=== PATIENT | male | born 1990 | race Caucasian/White ===

== ENCOUNTER 2016-09-14 19:19 | Emergency (ER) | payer OTHER ==
[~2016-09-14] VITALS: Ht 175.3 cm; Wt 107.0 kg
[2016-09-14 19:34] VITALS: BP 129/77; PULSE 118; RESP 14; TEMP 98.5; O2SAT 95
[2016-09-14 20:17] LABS: AUTOMATED NEUTROPHIL # 7.1 TH/MM3 (1.8-7.7); BASOPHIL % 0.4 % (0.0-2.0); EOSINOPHIL # 0.1 TH/MM3 (0-0.4); EOSINOPHIL % 0.8 % (0.0-4.0); HEMATOCRIT 43.6 % (39.0-51.0); HEMO FLAGS DIFF FINAL; LYMPH % 26.3 % (9.0-44.0); LYMPHOCYTE # 2.9 TH/MM3 (1.0-4.8); MEAN CELL VOLUME 84.7 FL (80.0-100.0); MEAN CORPUSCULAR HEMOGLOBIN 29.5 PG (27.0-34.0); MEAN CORPUSCULAR HGB CONC 34.8 % (32.0-36.0); MONO % 8.3 % (0.0-8.0); NEUT % 64.2 % (16.0-70.0); PLATELET COUNT 283 TH/MM3 (150-450); RED BLOOD COUNT 5.14 MIL/MM3 (4.50-5.90); RED CELL DISTRIBUTION WIDTH 13.9 % (11.6-17.2)
[2016-09-14 20:47] LABS: ALKALINE PHOSPHATASE 76 U/L (45-117); ALT (GPT) 21 U/L (12-78); ANION GAP 9 MEQ/L (5-15); AST (GOT) 15 U/L (15-37); BICARBONATE 27.9 MEQ/L (21.0-32.0); BLOOD UREA NITROGEN 13 MG/DL (7-18); CHLORIDE 103 MEQ/L (98-107); GLOMERULAR FILTRATION RATE 92 ML/MIN (>89); SODIUM (NA) 140 MEQ/L (136-145); TOTAL BILIRUBIN ADULT 0.3 MG/DL (0.2-1.0)
[2016-09-14 20:49] LABS: ACETAMINOPHEN LESS THAN 2.0 MCG/ML (10.0-30.0)
--- NOTE | 2016-09-14 21:08 | PD ---
HPI Chief Complaint: Psychiatric Symptoms Time Seen by Provider: 19:33 Travel History International Travel<30 days: No Contact w/Intl Traveler<30days: No Traveled to known affect area: No History of Present Illness HPI 26-year-old male arrives as a sheppard act. He told his mother he was going to kill himself after he got into an argument with her about getting a ride to [place]. He states he agrees with the mother frequently and this time the argument got out of hand. He denies any true harm to herself. He has been seen here in the past for various psychiatric disorders however at time of interview he denies any past psychiatric disease/diagnoses. He does report opioid abuse by mouth occasionally. He denies any history of IV drug abuse. Smokes tobacco. He denies alcohol. [facility] Past Medical History Medical History: Denies Significant Hx ADHD: No Weight (Kg): 3 Cancer: No Cardiovascular Problems: No Diabetes: No Diminished Hearing: No Headaches: No Psychiatric: No Migraines: No Seizures: No Thyroid Disease: No Ulcer: No Past Surgical History Surgical History: No Previous Surgery Appendectomy: No Section: No Cholecystectomy: No Social History Alcohol Use: Yes (A LOT-BEER AND VODKA) Tobacco Use: Yes (1PPD) Substance Use: Yes (MARIJUANA/COCAINE/XANAX) Allergies-Medications (Allergen,Severity, Reaction): Coded Allergies: No Known Allergies (Verified , 09/14/16) Reported Meds & Prescriptions Reported Meds & Active Scripts Active No Active Prescriptions or Reported Medications Review of Systems Except as stated in HPI: all other systems reviewed are Neg Physical Exam Narrative GENERAL: 26-year-old male well-nourished well developed no acute distress cooperative SKIN: Focused skin assessment warm/dry. HEAD: Atraumatic. Normocephalic. EYES: Pupils equal and round. No scleral icterus. No injection or drainage. ENT: No nasal bleeding or discharge. Mucous membranes pink and moist. NECK: Trachea midline. No JVD. CARDIOVASCULAR: Regular rate and rhythm. No murmur appreciated. RESPIRATORY: No accessory muscle use. Clear to auscultation. Breath sounds equal bilaterally. GASTROINTESTINAL: Abdomen soft, non-tender, nondistended. Hepatic and splenic margins not palpable. MUSCULOSKELETAL: No obvious deformities. No clubbing. No cyanosis. No edema. NEUROLOGICAL: Awake and alert. No obvious cranial nerve deficits. Motor grossly within normal limits. Normal speech. PSYCHIATRIC: The patient is a sheppard act after evidently verbalizing suicidal ideation to his mother. To me he denies SI/HI. Data Data Last Documented VS Vital Signs Date Time Temp Pulse Resp B/P Pulse Ox O2 Delivery O2 Flow Rate FiO2 09/14/16 19:34 98.5 118 14 129/77 95 VS reviewed Orders Complete Blood Count With Diff (09/14/16 19:53) Comprehensive Metabolic Panel (09/14/16 19:53) Psych Screen (09/14/16 19:53) Drug Screen, Random Urine (09/14/16 19:53) Alcohol (Ethanol) (09/14/16 19:53) Salicylates (Aspirin) (09/14/16 19:53) Tylenol (Acetaminophen) (09/14/16 19:53) Labs Laboratory Tests Test 09/14/16 19:45 White Blood Count 11.0 TH/MM3 Red Blood Count 5.14 MIL/MM3 Hemoglobin 15.2 GM/DL Hematocrit 43.6 % Mean Corpuscular Volume 84.7 FL Mean Corpuscular Hemoglobin 29.5 PG Mean Corpuscular Hemoglobin 34.8 % Concent Red Cell Distribution Width 13.9 % Platelet Count 283 TH/MM3 Mean Platelet Volume 8.1 FL Neutrophils (%) (Auto) 64.2 % Lymphocytes (%) (Auto) 26.3 % Monocytes (%) (Auto) 8.3 % Eosinophils (%) (Auto) 0.8 % Basophils (%) (Auto) 0.4 % Neutrophils # (Auto) 7.1 TH/MM3 Lymphocytes # (Auto) 2.9 TH/MM3 Monocytes # (Auto) 0.9 TH/MM3 Eosinophils # (Auto) 0.1 TH/MM3 Basophils # (Auto) 0.0 TH/MM3 CBC Comment DIFF FINAL Differential Comment Sodium Level 140 MEQ/L Potassium Level 4.0 MEQ/L Chloride Level 103 MEQ/L Carbon Dioxide Level 27.9 MEQ/L Anion Gap 9 MEQ/L Blood Urea Nitrogen 13 MG/DL Creatinine 1.00 MG/DL Estimat Glomerular Filtration 92 ML/MIN Rate Random Glucose 85 MG/DL Calcium Level 9.6 MG/DL Total Bilirubin 0.3 MG/DL Aspartate Amino Transf 15 U/L (AST/SGOT) Alanine Aminotransferase 21 U/L (ALT/SGPT) Alkaline Phosphatase 76 U/L Total Protein 7.8 GM/DL Albumin 4.3 GM/DL Salicylates Level 2.1 MG/DL Acetaminophen Level LESS THAN 2.0 MCG/ML Ethyl Alcohol Level LESS THAN 3 MG/DL MDM Medical Decision Making Medical Screen Exam Complete: Yes Emergency Medical Condition: Yes Medical Record Reviewed: Yes Differential Diagnosis Altered mental status/psychosis due to infection/environmental exposure/ metabolic abnormality, polypharmacy, alcohol abuse/intoxication, illicit or prescribed drug abuse, malingering/secondary gain, non-organic psychiatric disease Narrative Course CBC & BMP Diagram 09/14/16 19:45 LFTs normal EtOH <3 The history of present illness, ROS, physical exam, review of records and medical workup performed for today's visit have reasonably safely excluded organic etiologies for the patient's presenting complaint. We will continue to monitor the patient carefully in the ER until time of evaluation by the psychiatry service. We are available for any additional medical assistance if needed during the patient's ER course. Disposition per discretion of psychiatry is appreciated. Diagnosis Primary Impression: Suicidal ideation Scripts No Active Prescriptions or Reported Meds Casper Kern MD Sep 14, 2016 21:08
[2016-09-14 22:00] VITALS: BP 114/67; PULSE 79; RESP 18; TEMP 97.8; O2SAT 98
[2016-09-15 01:52] VITALS: BP 101/62; PULSE 67; RESP 18
[2016-09-15 06:04] VITALS: BP 115/55; PULSE 59; RESP 18
[2016-09-15 08:35] LABS: AMPHETAMINE, URINE NEG (NEG); BARBITURATES, URINE NEG (NEG); COCAINE, URINE NEG (NEG)
[2016-09-15 10:46] VITALS: BP 124/69; PULSE 69; RESP 18; TEMP 98; O2SAT 99
[2016-09-15 10:47] VITALS: BP 124/69; PULSE 69; RESP 18; O2SAT 99
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
== END 2016-09-15 11:38 | disposition home or self-care (01) ==
LOC: NED 19:19 → NEPJ 09-15 11:38
DX: F19.10 Other psychoactive substance abuse, uncomplicated (principal)
CPT/HCPCS: 80053; 80307; 85025; 99284

== ENCOUNTER 2017-06-28 21:04 | Emergency (ER) | payer SELFPAY ==
[~2017-06-28] VITALS: Ht 177.8 cm; Wt 85.0 kg
[2017-06-28 21:06] VITALS: BP 134/64; PULSE 84; RESP 20; TEMP 98.7; O2SAT 99
[2017-06-28] MEDS ORDERED: ASP: Only reason for admit - IV antibiotics OTHER ONE (21:30)
[2017-06-28] MEDS ORDERED: ASP: Does not meet inpatient admission criteria OTHER ONE (21:30)
[2017-06-28] MEDS ORDERED: LIDOCAINE 1%/EPINEPHrine 1:100,000 SOLN 20 ML VIAL INFIL ONE (21:30)
[2017-06-28] MEDS ORDERED: MISCELLANEOUS PHARMACY INFORMATION XX ONE ×3 (21:30→22:45)
[2017-06-28] MEDS ORDERED: ASP: Location of Dalbavancin administration OTHER ONE (21:30)
[2017-06-28] MEDS ORDERED: ASP: No known hypersensitivity to Vanco, Telavancin, Dalbavancin OTHER ONE (21:30)
--- NOTE | 2017-06-28 21:59 | PD ---
HPI Chief Complaint: Skin Problem Time Seen by Provider: 21:17 Travel History International Travel<30 days: No Contact w/Intl Traveler<30days: No Traveled to known affect area: No History of Present Illness HPI Patient's 27-year-old male presenting to the emergency department for evaluation of abscesses to his arms bilaterally. Patient states that he had been there for 2 days, getting worse over the last 24 hours. Patient reports pain is 8 out of 10 and states it is throbbing. Patient endorses IV drug use, he states he last injected methamphetamines last night and yesterday. Denies any fever, chills, nausea, vomiting, chest pain or shortness of breath. He reports that he recently started using IV drugs. Symptom onset was gradual, exacerbated by IV drug use. Patient denies any alleviating factors. PFSH Past Medical History Medical History: Denies Significant Hx Weight (Kg): 3 Tetanus Vaccination: Unknown Influenza Vaccination: No Past Surgical History Surgical History: No Previous Surgery Appendectomy: No Section: No Cholecystectomy: No Social History Alcohol Use: Yes (occasionally) Tobacco Use: Yes (1PPD) Substance Use: Yes (marijaunia and herion) Allergies-Medications (Allergen,Severity, Reaction): Coded Allergies: No Known Allergies (Verified Allergy, Unknown, 06/28/17) Reported Meds & Prescriptions Reported Meds & Active Scripts Active Mupirocin Topical (Mupirocin) 2 % Oint 1 Applic TOPICAL BID Ibuprofen 800 Mg Tab 800 Mg PO Q6HR PRN Review of Systems Except as stated in HPI: all other systems reviewed are Neg General / Constitutional: No: Fever, Chills Cardiovascular: No: Chest Pain or Discomfort, Palpitations, Tachycardia Respiratory: No: Shortness of Breath Gastrointestinal: No: Nausea, Abdominal Pain Musculoskeletal: Positive: Pain Skin: Positive Change in Pigmentation, Positive Lesions Physical Exam Narrative GENERAL: Well-developed, well-nourished, alert male. Presenting in no acute distress. SKIN: Warm and dry. There is a 2 cm area of fluctuance to the left antecubital space, 2 cm area of fluctuance to the left inner forearm. There is an additional area of fluctuance to the right antecubital space and right posterior forearm all of the lesions have the same dimensions. There is no significant induration. No Streaking noted. HEAD: Atraumatic. Normocephalic. EYES: Pupils equal and round. No scleral icterus. No injection or drainage. ENT: No nasal bleeding or discharge. Mucous membranes pink and moist. NECK: Trachea midline. No JVD. CARDIOVASCULAR: Regular rate and rhythm. RESPIRATORY: No accessory muscle use. Clear to auscultation. Breath sounds equal bilaterally. GASTROINTESTINAL: Abdomen soft, non-tender, nondistended. Hepatic and splenic margins not palpable. MUSCULOSKELETAL: Extremities without clubbing, cyanosis, or edema. No obvious deformities. 2+ radial pulses bilaterally. NEUROLOGICAL: Awake and alert. No obvious cranial nerve deficits. Motor grossly within normal limits. Five out of 5 muscle strength in the arms and legs. Normal speech. PSYCHIATRIC: Appropriate mood and affect; insight and judgment normal. Data Data Last Documented VS Vital Signs Date Time Temp Pulse Resp B/P (MAP) Pulse Ox O2 Delivery O2 Flow Rate FiO2 06/29/17 00:40 06/28/17 21:06 98.7 84 20 99 Room Air Orders Orders Complete Blood Count With Diff (06/28/17 21:25) Comprehensive Metabolic Panel (06/28/17 21:25) Blood Culture (06/28/17 21:25) Case Management Consult (06/28/17 ) Asp:No Reaction To Dalbav/Vanc (Asp Crit (06/28/17 21:30) Asp: Does Not Meet Inpt Admit (Asp Crit: (06/28/17 21:30) Asp: Iv Antibiotics Admit Only (Asp Crit (06/28/17 21:30) Asp: Location Of Dalbav Admin (Asp Crit: (06/28/17 21:30) [facility] Information ([facility] (06/28/17 21:30) Wound Culture And Gram Stain (06/28/17 21:25) Lidocai-Epi 1%-1:100,000 Inj (Xylocaine- (06/28/17 21:30) [facility] Information ([facility] (06/28/17 21:30) Ibuprofen (Motrin) (06/28/17 22:30) [facility] Information ([facility] (06/28/17 22:45) Dalbavancin Inj (Dalvance Inj) (06/28/17 22:45) Ed Discharge Order (06/29/17 00:42) Labs Laboratory Tests Test 06/28/17 21:40 White Blood Count 6.9 TH/MM3 Red Blood Count 4.65 MIL/MM3 Hemoglobin 13.8 GM/DL Hematocrit 39.6 % Mean Corpuscular Volume 85.2 FL Mean Corpuscular Hemoglobin 29.8 PG Mean Corpuscular Hemoglobin Concent 34.9 % Red Cell Distribution Width 14.3 % Platelet Count 211 TH/MM3 Mean Platelet Volume 7.4 FL Neutrophils (%) (Auto) 60.3 % Lymphocytes (%) (Auto) 26.4 % Monocytes (%) (Auto) 9.5 % Eosinophils (%) (Auto) 3.3 % Basophils (%) (Auto) 0.5 % Neutrophils # (Auto) 4.2 TH/MM3 Lymphocytes # (Auto) 1.8 TH/MM3 Monocytes # (Auto) 0.7 TH/MM3 Eosinophils # (Auto) 0.2 TH/MM3 Basophils # (Auto) 0.0 TH/MM3 CBC Comment DIFF FINAL Differential Comment Blood Urea Nitrogen 6 MG/DL Creatinine 0.77 MG/DL Random Glucose 94 MG/DL Total Protein 7.5 GM/DL Albumin 3.4 GM/DL Calcium Level 9.0 MG/DL Alkaline Phosphatase 117 U/L Aspartate Amino Transf (AST/SGOT) 152 U/L Alanine Aminotransferase (ALT/SGPT) 230 U/L Total Bilirubin 0.6 MG/DL Sodium Level 137 MEQ/L Potassium Level 3.7 MEQ/L Chloride Level 101 MEQ/L Carbon Dioxide Level 31.5 MEQ/L Anion Gap 5 MEQ/L Estimat Glomerular Filtration Rate 123 ML/MIN MDM Medical Decision Making Medical Screen Exam Complete: Yes Emergency Medical Condition: Yes Interpretation(s) Laboratory Tests Test 06/28/17 21:40 White Blood Count 6.9 TH/MM3 Red Blood Count 4.65 MIL/MM3 Hemoglobin 13.8 GM/DL Hematocrit 39.6 % Mean Corpuscular Volume 85.2 FL Mean Corpuscular Hemoglobin 29.8 PG Mean Corpuscular Hemoglobin Concent 34.9 % Red Cell Distribution Width 14.3 % Platelet Count 211 TH/MM3 Mean Platelet Volume 7.4 FL Neutrophils (%) (Auto) 60.3 % Lymphocytes (%) (Auto) 26.4 % Monocytes (%) (Auto) 9.5 % Eosinophils (%) (Auto) 3.3 % Basophils (%) (Auto) 0.5 % Neutrophils # (Auto) 4.2 TH/MM3 Lymphocytes # (Auto) 1.8 TH/MM3 Monocytes # (Auto) 0.7 TH/MM3 Eosinophils # (Auto) 0.2 TH/MM3 Basophils # (Auto) 0.0 TH/MM3 CBC Comment DIFF FINAL Differential Comment Blood Urea Nitrogen 6 MG/DL Creatinine 0.77 MG/DL Random Glucose 94 MG/DL Total Protein 7.5 GM/DL Albumin 3.4 GM/DL Calcium Level 9.0 MG/DL Alkaline Phosphatase 117 U/L Aspartate Amino Transf (AST/SGOT) 152 U/L Alanine Aminotransferase (ALT/SGPT) 230 U/L Total Bilirubin 0.6 MG/DL Sodium Level 137 MEQ/L Potassium Level 3.7 MEQ/L Chloride Level 101 MEQ/L Carbon Dioxide Level 31.5 MEQ/L Anion Gap 5 MEQ/L Estimat Glomerular Filtration Rate 123 ML/MIN Vital Signs Date Time Temp Pulse Resp B/P (MAP) Pulse Ox O2 Delivery O2 Flow Rate FiO2 06/28/17 21:06 98.7 84 20 134/64 (87) 99 Room Air Differential Diagnosis Cellulitis versus abscess versus sepsis versus metabolic abnormality versus other Narrative Course Patient's 27-year-old male presenting to the emergency department for evaluation of multiple skin abscesses secondary to IV drug use. Patient's vital signs are stable. Please see procedure report for I&D. Wound cultures obtained, basic labs and blood cultures obtained in order to administer Dalvance. CBC with no acute findings, chemistry with mild transaminitis. Dalvance has been ordered, discussed with case management. Patient received antibiotic, he was advised to avoid IVDU. He was also advised to follow up with PCP or at the [facility]. HE was also encouraged to return to the ED immediately for any new or worsening symptoms. Pt verbalized understanding. Patient is stable for discharge. Procedures Procedure Narrative After the risks and benefits were discussed the following procedure was performed: Left forearm INCISION AND DRAINAGE OF ABSCESS: The area was prepped and was sterilely draped. A subcutaneous wheal of 1 % Xylocaine with a total number 1 mL was used to anesthetize the area. The area was properly anesthetized. A number 11 scalpel was used to make a 1 -cm incision across the area of the abscess. Cultures were obtained. The abscess was drained an irrigated with normal saline. Sterile dressing applied. After the risks and benefits were discussed the following procedure was performed: Left ac INCISION AND DRAINAGE OF ABSCESS: The area was prepped and was sterilely draped. A subcutaneous wheal of 1 % Xylocaine with a total number 1 mL was used to anesthetize the area. The area was properly anesthetized. A number 11 scalpel was used to make a 1 -cm incision across the area of the abscess. Cultures were obtained. The abscess was drained an irrigated with normal saline. Sterile dressing applied. After the risks and benefits were discussed the following procedure was performed: Right forearm INCISION AND DRAINAGE OF ABSCESS: The area was prepped and was sterilely draped. A subcutaneous wheal of 1 % Xylocaine with a total number 1 mL was used to anesthetize the area. The area was properly anesthetized. A number 11 scalpel was used to make a 1 -cm incision across the area of the abscess. Cultures were obtained. The abscess was drained an irrigated with normal saline. Sterile dressing applied. Diagnosis Primary Impression: Substance abuse Additional Impressions: Abscess of arm, left Abscess of arm, right Encounter for incision and drainage procedure Elevated liver enzymes Referrals: [facility] Primary Care Physician 3 days Patient Instructions: Abscess (GEN), Abscess Incision and Drainage (DC), Dalbavancin (By injection), General Instructions Additional Instructions: Follow-up with your primary doctor or at the [facility] clinic Avoid IV drug use Keep wounds clean and dry, cover with nonocclusive dressing such as gauze. Do not use peroxide to clean wounds Return to the emergency department immediately for any new or worsening symptoms Med/Other Pt SpecificInfo: No Change to Meds Scripts Mupirocin Topical (Mupirocin Topical) 2 % Oint 1 APPLIC TOPICAL BID for Mgmt Bacterial Infection, #22 GM 0 Refills Prov: Kenyetta Wang 06/28/17 Ibuprofen (Ibuprofen) 800 Mg Tab 800 MG PO Q6HR Y for PAIN, #40 TAB 0 Refills Prov: Kenyetta Wang 06/28/17 Disposition: 01 DISCHARGE HOME Condition: Stable Kenyetta Wang Jun 28, 2017 21:58
[2017-06-28 22:08] LABS: AUTOMATED NEUTROPHIL # 4.2 TH/MM3 (1.8-7.7); BASOPHIL % 0.5 % (0.0-2.0); EOSINOPHIL # 0.2 TH/MM3 (0-0.4); EOSINOPHIL % 3.3 % (0.0-4.0); HEMATOCRIT 39.6 % (39.0-51.0); HEMOGLOBIN 13.8 GM/DL (13.0-17.0); LYMPH % 26.4 % (9.0-44.0); LYMPHOCYTE # 1.8 TH/MM3 (1.0-4.8); MEAN CELL VOLUME 85.2 FL (80.0-100.0); MEAN CORPUSCULAR HEMOGLOBIN 29.8 PG (27.0-34.0); MEAN CORPUSCULAR HGB CONC 34.9 % (32.0-36.0); MEAN PLATELET VOLUME 7.4 FL (7.0-11.0); MONO % 9.5 % (0.0-8.0); MONOCYTE # 0.7 TH/MM3 (0-0.9); NEUT % 60.3 % (16.0-70.0); PLATELET COUNT 211 TH/MM3 (150-450); RED BLOOD COUNT 4.65 MIL/MM3 (4.50-5.90); RED CELL DISTRIBUTION WIDTH 14.3 % (11.6-17.2); WHITE BLOOD COUNT 6.9 TH/MM3 (4.0-11.0)
[2017-06-28 22:28] LABS: ALBUMIN 3.4 GM/DL (3.4-5.0); ALT (GPT) 230 U/L (12-78); AST (GOT) 152 U/L (15-37); BICARBONATE 31.5 MEQ/L (21.0-32.0); BLOOD UREA NITROGEN 6 MG/DL (7-18); CHLORIDE 101 MEQ/L (98-107); CREATININE 0.77 MG/DL (0.60-1.30); GLOMERULAR FILTRATION RATE 123 ML/MIN (>89); GLUCOSE,RANDOM 94 MG/DL (74-106); SODIUM (NA) 137 MEQ/L (136-145)
[2017-06-28 22:30] LABS: ALKALINE PHOSPHATASE 117 U/L (45-117); TOTAL BILIRUBIN ADULT 0.6 MG/DL (0.2-1.0); TOTAL PROTEIN 7.5 GM/DL (6.4-8.2)
[2017-06-28] MEDS ORDERED: IBUPROFEN 800 MG TAB PO ONE (22:30)
[2017-06-28] MEDS ORDERED: DALBAVANCIN INJ 1,500 MG in DEXTROSE 5% IN WATE 500 ML INJ 500 ML IV STA ×2 (22:45)
[2017-06-28] MEDS ORDERED: MUPI2OIN TOPICAL (23:15)
[2017-06-28] MEDS ORDERED: IBUP1TAB7 PO (23:15)
[2017-06-29 01:00] VITALS: BP 128/82; PULSE 82; RESP 18; O2SAT 98
== END 2017-06-29 01:15 | disposition home or self-care (01) ==
LOC: NEPD 21:04
DX: L02.414 Cutaneous abscess of left upper limb (principal); L02.413 Cutaneous abscess of right upper limb; R74.8 Abnormal levels of other serum enzymes; F19.10 Other psychoactive substance abuse, uncomplicated; F17.200 Nicotine dependence, unspecified, uncomplicated
CPT/HCPCS: 10061; 80053; 85025; 86403; 87040; 87070; 87077; 87186; 96365; 99283; J0875; J7060; 87205